=== PATIENT | female | born 1975 | race African-American/Black ===

== ENCOUNTER 2019-08-27 14:53 | Emergency (ER) | payer MEDICAID ==
[~2019-08-27] VITALS: Ht 182.9 cm; Wt 150.0 kg
[2019-08-27 15:06] VITALS: BP 161/77
[2019-08-27] MEDS ORDERED: ACETAMINOPHEN 325MG TABLET PO ONE (15:15)
== END 2019-08-27 15:32 | disposition home or self-care (01) ==
LOC: ER 14:53
DX: K02.9 Dental caries, unspecified (principal); R03.0 Elevated blood-pressure reading, without diagnosis of hypertension
CPT/HCPCS: 99282